=== PATIENT | male | born 2000 | race Caucasian/White ===

== ENCOUNTER 2019-05-11 11:12 | Emergency (ER) | payer BC, SELFPAY ==
[2019-05-11 11:44] LABS: #Basophils 0.1 thou/uL (0.0-0.2); #Eosinphils 0.2 thou/uL (0.0-0.7); #Lymphocytes 1.8 thou/uL (1.20-3.40); #Monocytes 0.3 thou/uL (0.11-0.59); #Neutrophils 2.9 thou/uL (1.40-6.50); %Basophils 1.1 % (0.0-1.0); %Eosinophils 4.2 % (0.0-10.0); %Lymphocytes 33.5 % (28.0-48.0); %Monocytes 5.4 % (0.0-4.0); %Neutrophils 55.9 % (31.0-61.0); Hemoglobin 14.3 g/dL (14.0-18.0); Mean Corpuscular HGB CONC 32.2 g/dL (32.0-36.0); Mean Corpuscular Hemoglobin 29.5 pg (25.0-35.0); Mean Corpuscular Volume 91.6 fL (78.0-98.0); Mean Platelet Volume 7.6 fL (7.4-10.4); Platelet Count 203 thou/uL (130-400); RBC Distribution Width 12.4 % (11.5-14.5); Red Blood Cell (RBC) Count 4.86 mill/uL (4.00-5.20); White Blood Cell (WBC) Count 5.3 thou/uL (4.8-10.8)
[2019-05-11] MEDS ORDERED: Ketorolac Tromethamine 30 MG/ML VIAL ONE (11:47)
[2019-05-11 11:59] LABS: ALT (SGPT) 12 U/L (8-55); AST (SGOT) 16 U/L (5-34); Albumin 4.8 g/dL (3.5-5.0); Alkaline Phosphatase 61 U/L (Less than 750); Anion Gap 16 mmol/L (10-20); BUN (Urea Nitrogen) 7 mg/dL (8.9-20.6); Bilirubin, Total 1.2 mg/dL (0.2-1.2); Calc. Creatinine Clearance 0 mL/min (70-130); Calcium 10.3 mg/dL (7.8-10.44); Carbon Dioxide 24 mmol/L (22-29); Chloride 106 mmol/L (98-107); Estimated GFR-MDRD Greater than 90; Globulin 2.7 g/dL (2.4-3.5); Glucose 88 mg/dL (70-105); Lipase 19 U/L (8-78); Potassium 3.7 mmol/L (3.5-5.1); Protein, Total 7.5 g/dL (6.0-8.3); Sodium 142 mmol/L (136-145)
[2019-05-11 13:09] LABS: Bilirubin Moderate (Negative); Blood, Urine Moderate (Negative); Glucose, Urine (Dipstick) Negative (Negative); Leukocyte Negative (Negative); Nitrite Negative (Negative); Protein, Urine (Dipstick) 30 mg/dL (Neg-Trace)
[2019-05-11 13:13] LABS: Bacteria/HPF None Seen HPF (None Seen); Clarity Hazy (Clear); Mucous/LPF 2+ LPF (<2+); RBC/HPF 21-50 HPF (0-3); Squamous Epithelial 0-3 HPF (0-3); WBC/HPF None Seen HPF (0-3)
--- NOTE | 2019-05-11 14:56 | CT ---
CT ABDOMEN AND PELVIS WITHOUT CONTRAST: Date: 05/11/[address] of the abdomen and pelvis was done without oral or IV contrast to evaluate right flank pain . There is a tiny, 2.0 mm, calculus at the right ureterovesical junction. There is only marginal dilati on of the right ureter and no hydronephrosis seen. No renal calculi seen with assurance. The remainder of the scan was unremarkable. The lung bases are clear. The liver, spleen, pancreas, ad renal glands, and aorta were unremarkable. There is a very vague low density area in the middle third of the left kidney, which may not be significant, or could be an early cyst. The bowel shows no dila tion, wall thickening, or inflammatory changes around it. The appendix appears normal. No free air or free fluid seen. CT of the pelvis was unremarkable, except for the small stone noted at the right UVJ. IMPRESSION: Tiny, 2.0 mm, distal right ureteral calculus at the right UVJ, if not already in the urinary bladder. POS: HOME
[2019-05-13 22:07] LABS: Chlam.trachomatis by PCR,Urine Not Detected (NotDetected)
== END 2019-05-11 14:20 | disposition home or self-care (01) ==
LOC: BURERS 11:12
DX: N20.2 Calculus of kidney with calculus of ureter (principal)
CPT/HCPCS: 36415; 74176; 80053; 81003; 81015; 83690; 85025; 87491; 87591; 96374; J1885